=== PATIENT | male | born 1985 | race Two or more races ===

== ENCOUNTER 2016-12-15 11:50 | Emergency (ER) | payer MEDICAID ==
[2016-12-15 12:04] VITALS: TEMP 98.6
--- NOTE | 2016-12-15 13:44 | EDPHY ---
H & P Time Seen by Provider: 12/15/16 13:43 HPI/ROS: CHIEF COMPLAINT: [ ] HISTORY OF PRESENT ILLNESS: [must have 4 elements] REVIEW OF SYSTEMS: Eye:[ no change in vision] ENT: [no sore throat] Cardiac: [no chest pain or syncope] Pulmonary: [no cough or SOB] Abdomen: [no vomiting, diarrhea, abdominal pain] Musculoskeletal: [no back pain] Skin: [no rash] Neuro: [no headache] Constitutional: [no fever] : [no urinary symptoms] A comprehensive 10 point review of systems is otherwise negative aside from elements mentioned in the history of present illness. PAST MEDICAL HISTORY: Social history: General Appearance: [Alert and conversant, cooperative.] Eyes: [No scleral icterus.] ENT, Mouth: [Normal mucous membranes.] Respiratory: [Normal respiratory effort, breath sounds equal, lungs are clear to auscultation.] Cardiovascular: [Regular rate and rhythm.] Gastrointestinal: [Abdomen is soft and non tender.] Neurological: [Alert and oriented x3.] [Normally conversant.] [Face symmetric , normal movement and sensation in all extremities.] Skin: [Warm and dry, no rashes.] Musculoskeletal: [No peripheral edema and no joint swelling.] Psychiatric: [Not agitated.] Emergency Department course/MDM: Smoking Status: Never smoked Constitutional: Initial Vital Signs Temperature (C) 37.0 C 12/15/16 12:02 Heart Rate 90 12/15/16 12:02 Respiratory Rate 16 12/15/16 12:02 Blood Pressure 131/80 H 12/15/16 12:02 O2 Sat (%) 98 12/15/16 12:02 O2 Delivery Mode Room Air Allergies/Adverse Reactions: No Known Allergies Allergy (Unverified 12/15/16 12:02) Home Medications: Medication Instructions Recorded NK [No Known Home Meds] 12/15/16 Departure - Departure Referrals: CONRAD SAMANIEGO [Other] - As per Instructions
[2016-12-15] MEDS ORDERED: KETOROLAC 15 MG/1 ML SDV IM ONE (14:04)
[2016-12-15] MEDS ORDERED: DEXAMETHASONE 4 MG/ML VIAL IM ONE (14:04)
--- NOTE | 2016-12-15 14:08 | EDPHY ---
H & P Smoking Status: Never smoked Time Seen by Provider: 12/15/16 13:43 HPI/ROS: HPI: This is a 31-year-old male who presents with: Chief Complaint: Right lower back pain Location: Right lower back Quality: Aching Duration: 1 week Signs and Symptoms: No radiation, no weakness, no incontinence, no dysuria, no fever, no abdominal pain, no chest pain, no palpitation Timing: Daily, worse throughout the day and bending activities Severity: Moderate Context: Patient has a history of L2-L3 L4 transverse process fractures on the right secondary to a snowboarding accident several years ago managed non operatively. Patient reports 2 weeks ago that he was helping move a clean size bed; pushing and pulling; and and felt pain on the right side of his lower back. He has been taking Flexeril with transient relief. He reports today as pain has continued and is requesting x-rays. Modifying Factors: Flexeril transient relief Comment: ROS: Eyes: No blurred vision Respiratory: No shortness of breath, no cough Cardiovascular: No chest pain Gastrointestinal: No nausea, no vomiting no diarrhea Genitourinary: No dysuria Extremities: No myalgias Neurologic: No weakness, no numbness Skin: No rashes Hematologic: No bruising, no bleeding MEDICAL/SURGICAL HISTORY: Generally healthy. No history of surgery. (Treva Lozano) Social History: Employed. (Treva Lozano) Physical Exam: CONSTITUTIONAL: Pleasant adult white male, awake and alert, no obvious distress HEENT: Atraumatic and normocephalic, PERRL, EOMI. Tympanic membranes clear. . Oropharynx clear, no exudate and moist pink mucosa. Airway patent. No lymphadenopathy. No meningismus. Cardiovascular: Normal S1/S2, regular rate, regular rhythm, without murmur rub or gallop. PULMONARY/CHEST: Symmetrical and nontender. Clear to auscultation bilaterally Good air movement. No accessory muscle usage. ABDOMEN: Soft, nondistended, nontender, no rebound, no guarding, no peritoneal signs, no masses or organomegaly. No CVAT. EXTREMITIES: 2/2 pulses, no deformities, no clubbing, no cyanosis or edema. BACK: Mild right lumbar paraspinous muscle reproducible tenderness, no paraspinous muscle spasm, tendon reflexes 2/2, no pain with flexion extension rotation. No Pain with straight leg raise. Patient able to walk on heels and toes. NEUROLOGICAL: no focal neuro deficits. GCS 15. SKIN: Warm and dry, no erythema. no rash. Good capillary refill. (Treva Lozano) Constitutional: Initial Vital Signs Temperature (C) 37.0 C 12/15/16 12:02 Heart Rate 90 12/15/16 12:02 Respiratory Rate 16 12/15/16 12:02 Blood Pressure 131/80 H 12/15/16 12:02 O2 Sat (%) 98 12/15/16 12:02 O2 Delivery Mode Room Air Allergies/Adverse Reactions: No Known Allergies Allergy (Unverified 12/15/16 12:02) Home Medications: Medication Instructions Recorded Metaxalone [METAXALONE] 800 mg PO TID PRN #12 tab 12/15/16 methylPREDNISolone [Medrol Dose 1 each PO AD #0 ea 12/15/16 Jono] Medical Decision Making - Diagnostics Imaging Results: Imaging Impressions Lumbar Spine X-Ray 12/15/16 14:04 Impression: 1. There is no acute osseous abnormality identified. 2. Suspect old healed right L3 and L4 transverse process fractures. Should the patient develop any radicular symptoms in addition to his lumbago, MR imaging may be then be indicated. ED Course/Re-evaluation: Lumbar sacral x-ray ordered, IM medication No signs of neurovascular compromise, cauda equina syndrome, saddle anesthesia Advised rice, supportive care If symptoms persist greater than 1 week advised would benefit from MRI lumbar outpatient (Treva Lozano) Differential Diagnosis: Back pain including but not limited to muscular pain, herniated disc, spine fracture, intra-abdominal causes and urinary tract infection. (Treva Lozano) Other Provider: Lumbar spine x-ray reviewed by myself does not show acute fracture or dislocation. I am the secondary supervising physician but did not personally evaluate the patient. (Afshin Johnson) - Data Points Medications Given: Discontinued Medications Dexamethasone (Decadron Injection) 8 mg IM EDNOW ONE Stop: 12/15/16 14:05 Last Admin: 12/15/16 14:18 Dose: 8 mg Ketorolac Tromethamine (Toradol) 15 mg IM EDNOW ONE Stop: 12/15/16 14:05 Last Admin: 12/15/16 14:18 Dose: 15 mg Departure - Departure Disposition: Home, Routine, Self-Care Clinical Impression: Strain of lumbar paraspinal muscle Qualifiers: Encounter type: initial encounter Qualified Code(s): S39.012A - Strain of muscle, fascia and tendon of lower back, initial encounter Condition: Good Instructions: Low Back Strain (ED) Additional Instructions: Take ibuprofen 600-800 mg as needed for pain. Continue to take Flexeril 3 times a day as needed for muscle spasm. Referrals: CONRAD SAMANIEGO [Other] - 5-7 days, if not improved [facility],. [Clinic] - 5-7 days, if not improved Prescriptions: Metaxalone [METAXALONE] 800 mg PO TID PRN #12 tab PRN Reason: Muscle spasms methylPREDNISolone [Medrol Dose Jono] 1 each PO AD #0 ea
[2016-12-15] MEDS ORDERED: DEXAMETHASONE 4 MG/ML VIAL ONE (14:19)
[2016-12-15 15:40] VITALS: BP 123/68; PULSE 80; RESP 20; O2SAT 96
== END 2016-12-15 15:40 | disposition home or self-care (01) ==
DX: S39.012A Strain of muscle, fascia and tendon of lower back, initial encounter (principal); X50.9XXA Other and unspecified overexertion or strenuous movements or postures, initial encounter
CPT/HCPCS: J1100; J1885

== ENCOUNTER 2017-02-22 11:39 | Emergency (ER) | payer MEDICAID ==
[2017-02-22 11:51] VITALS: BP 116/57; PULSE 71; RESP 18; TEMP 97.7; O2SAT 96
== END 2017-02-22 13:56 | disposition left against medical advice (07) ==
DX: Z53.21 Procedure and treatment not carried out due to patient leaving prior to being seen by health care provider (principal)